=== PATIENT | female | born 1990 | race African-American/Black ===

== ENCOUNTER 2020-11-09 09:32 | Emergency (ER) | payer SELFPAY ==
[~2020-11-09] VITALS: Ht 167.6 cm; Wt 72.6 kg
[2020-11-09] MEDS ORDERED: ACETAMINOPHEN 325MG TABLET PO STA (10:05)
[2020-11-09 11:29] LABS: CLARITY URINE CLEAR (CLEAR); COLOR URINE YELLOW (YELLOW); KETONES URINE NEGATIVE (NEGATIVE); LEUKOCYTE ESTERASE URINE 3+ (NEGATIVE); NITRITE URINE NEGATIVE (NEGATIVE); OCCULT BLOOD URINE NEGATIVE (NEGATIVE); PH URINE 6.5 (4.5-8.0); PROTEIN URINE NEGATIVE (NEGATIVE); SPECIFIC GRAVITY URINE 1.013 (1.005-1.030); UROBILINOGEN URINE 0.2 E.U./dL (0.2-1.0)
[2020-11-09 11:37] LABS: CHLORIDE 108 mEq/L (98-107)
[2020-11-09 12:04] LABS: B-HCG QUANTITATIVE 13938 mIU/mL (<3)
[2020-11-09] MEDS ORDERED: NITR-87 MT (12:41)
[2020-11-09 14:14] LABS: BASOPHILS % 0.3 % (0.0-2.0); EOSINOPHILS % 1.4 % (0.0-5.0); HEMATOCRIT. 26.6 % (36.0-48.0); HEMOGLOBIN. 8.5 g/dL (12.0-16.0); LYMPHOCYTES % 14.7 % (20.0-50.0); MEAN CORPUSCULAR HEMOGLOBIN 24.3 pg (28.0-32.0); MEAN CORPUSCULAR VOLUME 76.1 fL (81.0-99.0); MONOCYTES % 8.1 % (2.0-8.0); NEUTROPHILS % 75.5 % (40.0-76.0); PLATELET 260 x1000/uL (130-400); RED BLOOD CELL COUNT 3.49 mill/uL (4.2-5.4); RED CELL DISTRIBUTION WIDTH 21.5 % (11.6-14.6)
[2020-11-09 16:00] VITALS: BP 101/28
== END 2020-11-09 21:21 | disposition home or self-care (01) ==
LOC: ER 09:32
DX: O99.892 Other specified diseases and conditions complicating childbirth (principal); R10.33 Periumbilical pain; Y04.2XXA Assault by strike against or bumped into by another person, initial encounter; Y93.89 Activity, other specified; Y92.89 Other specified places as the place of occurrence of the external cause; Z3A.16 16 weeks gestation of pregnancy; O23.42 Unspecified infection of urinary tract in pregnancy, second trimester
CPT/HCPCS: 36415; 76805; 80053; 81003; 84702; 85025; 99284